=== PATIENT | female | born 1995 | race Hispanic/Latino ===

== ENCOUNTER 2021-03-24 19:12 | Day surgery (SDC) | payer OTHER ==
[2021-03-24] MEDS ORDERED: hydrALAZINE 20 MG/ML VIAL SLOW IVP PRN (19:59)
== END 2021-03-24 20:38 | disposition home health service (06) ==
LOC: CSHLD/OP 19:12
PROVIDERS: ATTEND Obstetrics & Gynecology
DX: O26.892 Other specified pregnancy related conditions, second trimester (principal); R10.30 Lower abdominal pain, unspecified; Z3A.21 21 weeks gestation of pregnancy
CPT/HCPCS: 99283

== ENCOUNTER 2021-06-17 23:15 | Inpatient (IN) | payer MEDICAID, OTHER, SELFPAY ==
[2021-06-17 23:56] VITALS: BMI 31.7
[2021-06-18] MEDS: Lactated Ringer's 1,000 ML IV SCH ×2 (00:46→19:18)
[2021-06-18] MEDS ORDERED: Ondansetron PF 4 MG/2 ML Vial IVP PRN (01:49)
[2021-06-18] MEDS ORDERED: Promethazine HCl 25 MG/ML VIAL IM PRN (01:49)
[2021-06-18] MEDS ORDERED: hydrALAZINE 20 MG/ML VIAL SLOW IVP PRN (01:49)
[2021-06-18] MEDS ORDERED: NIFEdipine 10 MG CAP PO SCH (02:00)
[2021-06-18] MEDS ORDERED: Lactated Ringer's 1,000 ML IV SCH (02:00)
[2021-06-18] MEDS ORDERED: Betamet Acet/Betamet Na Ph 30 MG/5 ML VIAL ONE (02:24)
[2021-06-18 02:26] LABS: Hemoglobin 11.2 g/dL (12.0-15.5); Mean Corpuscular HGB CONC 33.8 g/dL (32.0-36.0); Mean Corpuscular Hemoglobin 30.9 pg (27.0-33.0); Mean Corpuscular Volume 91.4 fl (81.6-98.3); Platelet Count 176 10x3/uL (150-450); RBC Distribution Width 14.3 % (11.5-14.5); Red Blood Cell (RBC) Count 3.62 10x6/uL (3.90-5.03)
[2021-06-18 02:27] LABS: FFN Internal QC Analyzer PASS (PASS); FFN Internal QC Cassette PASS (PASS); Fetal Fibronectin Negative (Negative)
[2021-06-18] MEDS: Betamet Acet/Betamet Na Ph 30 MG/5 ML VIAL IM SCH (02:32)
[2021-06-18 05:38] LABS: Bilirubin Neg (Negative); Blood, Urine Negative (Negative); Clarity Clear (Clear); Glucose, Urine (Dipstick) Normal (Negative); Ketone, Urine 50 mg/dL (Negative); Leukocyte Negative (Negative); Nitrite Negative (Negative); Protein, Urine (Dipstick) Negative (Neg-Trace); Urobilinogen Normal mg/dL (Less than 2); pH, Urine 6.5 (5.0-9.0)
[2021-06-18 05:52] LABS: RBC/HPF 0-3 HPF (0-3); Squamous Epithelial 0-3 HPF (0-3)
[2021-06-18 05:53] LABS: Bacteria/HPF Rare-Few HPF (None Seen)
[2021-06-18] MEDS ORDERED: metroNIDAZOLE 500 MG TAB PO SCH (08:00)
[2021-06-18] MEDS ORDERED: Fluconazole 100 MG TAB PO SCH (08:00)
[2021-06-18] MEDS ORDERED: Morphine 4 MG/ML VIAL IM SCH (08:30)
[2021-06-18] MEDS ORDERED: Morphine 4 MG/ML VIAL SLOW IVP SCH (08:30)
[2021-06-18] MEDS: NIFEdipine 10 MG CAP PO SCH ×3 (08:52→19:14)
[2021-06-18] MEDS: Acetaminophen 500 MG TAB PO PRN (19:49)
[2021-06-18] MEDS ORDERED: Butorphanol Tartrate 1 MG/ML VIAL SLOW IVP PRN (20:55)
[2021-06-18] MEDS ORDERED: hydrOXYzine Pamoate 25 mg Capsule PO PRN (20:55)
[2021-06-18] MEDS ORDERED: Terbutaline Sulfate 1 MG/ML VIAL SC PRN (20:56)
[2021-06-18] MEDS: metroNIDAZOLE 500 MG TAB PO SCH (20:59)
[2021-06-19] MEDS: NIFEdipine 10 MG CAP PO SCH ×4 (00:51→20:01)
[2021-06-19] MEDS: Betamet Acet/Betamet Na Ph 30 MG/5 ML VIAL IM SCH (02:34)
[2021-06-19] MEDS: Acetaminophen 500 MG TAB PO PRN ×2 (02:40→10:04)
[2021-06-19] MEDS: metroNIDAZOLE 500 MG TAB PO SCH ×2 (10:01→21:09)
[2021-06-20] MEDS: NIFEdipine 10 MG CAP PO SCH ×2 (02:10→08:42)
[2021-06-20] MEDS: Acetaminophen 500 MG TAB PO PRN ×2 (02:10→08:39)
[2021-06-20] MEDS: metroNIDAZOLE 500 MG TAB PO SCH (08:39)
== END 2021-06-20 14:35 | disposition home or self-care (01) | DRG 832 ==
LOC: CSHLD/OP 23:15 → CSHLD 06-18 02:15 → OBSVTOIN 06-18 02:16
PROVIDERS: ADMIT Family Medicine; ATTEND Family Medicine
DX: O60.03 Preterm labor without delivery, third trimester (principal); O23.593 Infection of other part of genital tract in pregnancy, third trimester; O98.813 Other maternal infectious and parasitic diseases complicating pregnancy, third trimester; B96.89 Other specified bacterial agents as the cause of diseases classified elsewhere; B37.3 Candidiasis of vulva and vagina; Z3A.33 33 weeks gestation of pregnancy; O24.419 Gestational diabetes mellitus in pregnancy, unspecified control
CPT/HCPCS: 76815; 81001; 82731; 85027; 87081; 87480; 87510; 87660; 99285; J0595; J2270; J2550; J3105; J7120

== ENCOUNTER 2022-09-01 23:26 | Emergency (ER) | payer MEDICAID, SELFPAY ==
[2022-09-02 00:32] LABS: Bilirubin Neg (Negative); Blood, Urine 25 (Negative); Clarity Cloudy (Clear); Glucose, Urine (Dipstick) Normal (Negative); Ketone, Urine 50 mg/dL (Negative); Leukocyte 500 (Negative); Nitrite Negative (Negative); Protein, Urine (Dipstick) 15 mg/dl (Neg-Trace); Specific Gravity, Urine 1.025 (1.005-1.030); Urobilinogen Normal mg/dL (Less than 2)
[2022-09-02 00:37] LABS: #Eosinphils 0.1 10x3/uL (0.0-0.5); #Monocytes 0.6 10x3/uL (0.0-1.1); #Neutrophils 5.7 10x3/uL (1.5-8.4); %Basophils 0.3 % (0.0-2.0); %Eosinophils 0.8 % (0.0-6.0); %Monocytes 6.1 % (0.0-10.0); %Neutrophils 58.6 % (40.0-75.0); Hematocrit 39.6 % (34.9-44.5); Hemoglobin 13.2 g/dL (12.0-15.5); Mean Corpuscular HGB CONC 33.3 g/dL (32.0-36.0); Mean Corpuscular Hemoglobin 28.7 pg (27.0-33.0); Mean Corpuscular Volume 86.1 fl (81.6-98.3); Mean Platelet Volume 11.2 fl (7.4-10.4); Platelet Count 248 10x3/uL (150-450); RBC Distribution Width 13.9 % (11.5-14.5); White Blood Cell (WBC) Count 9.7 10x3/uL (3.5-10.5)
[2022-09-02 00:40] LABS: Bacteria/HPF Rare-Few HPF (None Seen); CAUTI Indications for Culture Dysuria,urgency,freq
[2022-09-02 00:41] LABS: Urine Culture Reflex No No
== END 2022-09-02 01:09 | disposition home or self-care (01) ==
LOC: CSHERS 23:26
DX: N76.0 Acute vaginitis (principal); R10.2 Pelvic and perineal pain
CPT/HCPCS: 76856; 81001; 84702; 85025

== ENCOUNTER 2023-02-05 22:02 | Day surgery (SDC) | payer OTHER ==
[2023-02-05 22:23] VITALS: BMI 34.4
[2023-02-05] MEDS ORDERED: hydrALAZINE 20 MG/ML VIAL SLOW IVP PRN (22:32)
[2023-02-05] MEDS ORDERED: Lactated Ringer's 1,000 ML IV SCH (22:45)
[2023-02-05 23:29] LABS: Bilirubin Neg (Negative); Blood, Urine Negative (Negative); Clarity Clear (Clear); Glucose, Urine (Dipstick) Normal (Negative); Ketone, Urine Negative (Negative); Leukocyte 25 (Negative); Nitrite Negative (Negative); Protein, Urine (Dipstick) 15 mg/dl (Neg-Trace); Specific Gravity, Urine 1.005 (1.005-1.030); Urobilinogen Normal mg/dL (Less than 2); pH, Urine 6.5 (5.0-9.0)
[2023-02-05 23:41] LABS: RBC/HPF 0-3 HPF (0-3)
[2023-02-05 23:43] LABS: Squamous Epithelial 0-3 HPF (0-3); WBC/HPF 0-3 HPF (0-3)
[2023-02-05 23:46] LABS: Bacteria/HPF 1+ HPF (None Seen)
== END 2023-02-06 00:31 | disposition home or self-care (01) ==
LOC: CSHLD/OP 22:02
PROVIDERS: ATTEND Family Medicine
DX: O36.8130 Decreased fetal movements, third trimester, not applicable or unspecified (principal); O99.891 Other specified diseases and conditions complicating pregnancy; R10.9 Unspecified abdominal pain; Z3A.31 31 weeks gestation of pregnancy
CPT/HCPCS: 76819; 81001

== ENCOUNTER 2023-02-21 15:04 | Inpatient (IN) | payer MEDICAID, OTHER ==
[2023-02-21] MEDS ORDERED: Tranexamic Acid 1,000 MG/10 ML VIAL IVP PRN (15:07)
[2023-02-21] MEDS ORDERED: Promethazine HCl 25 MG/ML VIAL IM PRN (15:07)
[2023-02-21] MEDS ORDERED: Methylergonovine 0.2 MG/ML VIAL IM PRN (15:07)
[2023-02-21] MEDS ORDERED: Diphenoxylate HCl/Atropine Tablet PO PRN (15:07)
[2023-02-21] MEDS ORDERED: Acetaminophen 500 MG TAB PO PRN (15:07)
[2023-02-21] MEDS ORDERED: Misoprostol 200 MCG TAB PR PRN (15:07)
[2023-02-21] MEDS ORDERED: hydrALAZINE 20 MG/ML VIAL SLOW IVP PRN (15:07)
[2023-02-21] MEDS ORDERED: Ondansetron PF 4 MG/2 ML Vial IVP PRN (15:07)
[2023-02-21] MEDS ORDERED: Docusate 100 MG CAP PO PRN (15:07)
[2023-02-21] MEDS ORDERED: Carboprost 250 MCG/ML AMP IM PRN (15:07)
[2023-02-21] MEDS ORDERED: AZITHROMYCIN IVPB SCH (15:15)
[2023-02-21] MEDS ORDERED: ADMIXTURE FEE IVPB SCH (15:15)
[2023-02-21] MEDS ORDERED: Lactated Ringer's 1,000 ML IV SCH (15:15)
[2023-02-21] MEDS ORDERED: SODIUM CHLORIDE IVPB SCH (15:15)
[2023-02-21] MEDS ORDERED: NIFEdipine 10 MG CAP PO SCH (15:15)
[2023-02-21] MEDS ORDERED: Oxytocin 30 units/NS 500 ML 500 ML IV SCH (15:15)
[2023-02-21] MEDS: Betamet Acet/Betamet Na Ph 30 MG/5 ML VIAL IM SCH (17:15)
[2023-02-21] MEDS: Ampicillin 2 GM in Sodium Chloride 0.9% 100 ML IVPB SCH ×2 (17:15→23:09)
[2023-02-21 17:18] LABS: Hematocrit 38.2 % (34.9-44.5); Hemoglobin 12.5 g/dL (12.0-15.5); Mean Corpuscular HGB CONC 32.7 g/dL (32.0-36.0); Mean Corpuscular Hemoglobin 29.8 pg (27.0-33.0); Platelet Count 160 10x3/uL (150-450); RBC Distribution Width 14.4 % (11.5-14.5); White Blood Cell (WBC) Count 8.3 10x3/uL (3.5-10.5)
[2023-02-21 18:17] LABS: HBSAg Index 0.19 S/CO (0-0.99); Hep B Surf Ag - L&D Non-Reactive S/CO (NonReactive)
[2023-02-21 18:18] LABS: Syphilis Antibody Nonreactive (Nonreactive); Syphilis Antibody Index 0.06 S/CO (<1.00 Non-Reactive)
[2023-02-21 19:07] VITALS: BMI 34.4
[2023-02-21] MEDS ORDERED: Terbutaline Sulfate 1 MG/ML VIAL ONE (21:16)
[2023-02-21] MEDS: NIFEdipine 10 MG CAP PO PRN (21:20)
[2023-02-21] MEDS: fentaNYL 50 mcg/mL 1 mL Vial SLOW IVP PRN (21:21)
[2023-02-21] MEDS ORDERED: Terbutaline Sulfate 1 MG/ML VIAL SC SCH (21:30)
[2023-02-22] MEDS: NIFEdipine 10 MG CAP PO PRN ×5 (01:28→20:01)
[2023-02-22] MEDS: Ampicillin 2 GM in Sodium Chloride 0.9% 100 ML IVPB SCH ×3 (05:26→18:14)
[2023-02-22 14:41] LABS: Bilirubin Neg (Negative); Blood, Urine Negative (Negative); Clarity Slightly Cloudy (Clear); Glucose, Urine (Dipstick) Normal (Negative); Ketone, Urine 150 mg/dL (Negative); Leukocyte 25 (Negative); Nitrite Negative (Negative); Protein, Urine (Dipstick) 15 mg/dl (Neg-Trace)
[2023-02-22 14:51] LABS: CAUTI Indications for Culture Pregnancy; RBC/HPF 0-3 HPF (0-3)
[2023-02-22 14:52] LABS: Bacteria/HPF 1+ HPF (None Seen); Urine Culture Reflex Yes Yes
[2023-02-22] MEDS ORDERED: Lactated Ringer's 1,000 ML IV SCH (18:00)
[2023-02-22] MEDS ORDERED: Terbutaline Sulfate 1 MG/ML VIAL SC SCH (18:00)
[2023-02-22] MEDS ORDERED: Terbutaline Sulfate 1 MG/ML VIAL ONE (18:01)
[2023-02-22] MEDS ORDERED: Betamet Acet/Betamet Na Ph 30 MG/5 ML VIAL ONE (18:01)
[2023-02-22] MEDS: Betamet Acet/Betamet Na Ph 30 MG/5 ML VIAL IM SCH (18:13)
[2023-02-22] MEDS: Gentamicin Sulfate 410 MG in Sodium Chloride 0.9% 100 ML IVPB SCH (19:14)
[2023-02-22] MEDS: fentaNYL 50 mcg/mL 1 mL Vial SLOW IVP PRN (20:11)
[2023-02-23] MEDS: Ampicillin 2 GM in Sodium Chloride 0.9% 100 ML IVPB SCH ×4 (00:37→15:33)
[2023-02-23] MEDS: fentaNYL 50 mcg/mL 1 mL Vial SLOW IVP PRN ×2 (07:37→11:50)
[2023-02-23] MEDS: NIFEdipine 10 MG CAP PO PRN ×2 (07:38→11:36)
[2023-02-23] MEDS: Lactated Ringer's 1,000 ML IV SCH ×4 (08:46→19:50)
[2023-02-23] MEDS: Gentamicin Sulfate 410 MG in Sodium Chloride 0.9% 100 ML IVPB SCH (19:50)
[2023-02-24] MEDS: fentaNYL 50 mcg/mL 1 mL Vial SLOW IVP PRN (07:21)
[2023-02-24] MEDS ORDERED: fentaNYL 50 mcg/mL 1 mL Vial SLOW IVP PRN (10:30)
[2023-02-24] MEDS: AMOXicillin 250 MG CAP PO SCH ×2 (15:34→21:21)
[2023-02-24] MEDS: Lactated Ringer's 1,000 ML IV SCH ×2 (18:53→21:22)
[2023-02-24] MEDS ORDERED: hydrOXYzine Pamoate 25 mg Capsule PO SCH (21:45)
[2023-02-25] MEDS: AMOXicillin 250 MG CAP PO SCH ×3 (11:17→21:14)
[2023-02-25] MEDS: Lactated Ringer's 1,000 ML IV SCH ×3 (11:20→21:14)
[2023-02-25] MEDS ORDERED: hydrOXYzine Pamoate 25 mg Capsule PO SCH (21:00)
[2023-02-26] MEDS: AMOXicillin 250 MG CAP PO SCH (10:04)
== END 2023-02-26 11:20 | disposition home or self-care (01) | DRG 833 ==
LOC: CSHLD 15:04
PROVIDERS: ADMIT Family Medicine; ATTEND Family Medicine
DX: O60.03 Preterm labor without delivery, third trimester (principal); Z3A.33 33 weeks gestation of pregnancy
CPT/HCPCS: 36416; 81001; 85027; 86780; 86850; 86900; 86901; 87086; 87340; J0290; J0456; J0702; J1580; J3010; J3105; J3490; J7050; J7120; Q0177

== ENCOUNTER 2023-03-03 18:26 | Inpatient (IN) | payer MEDICAID ==
[2023-03-03] MEDS ORDERED: Docusate 100 MG CAP PO PRN (19:33)
[2023-03-03] MEDS ORDERED: Methylergonovine 0.2 MG/ML VIAL IM PRN (19:33)
[2023-03-03] MEDS ORDERED: Misoprostol 200 MCG TAB PR PRN (19:33)
[2023-03-03] MEDS ORDERED: hydrALAZINE 20 MG/ML VIAL SLOW IVP PRN (19:33)
[2023-03-03] MEDS ORDERED: Carboprost 250 MCG/ML AMP IM PRN (19:33)
[2023-03-03] MEDS ORDERED: Diphenoxylate HCl/Atropine Tablet PO PRN (19:33)
[2023-03-03] MEDS ORDERED: Acetaminophen 500 MG TAB PO PRN (19:33)
[2023-03-03] MEDS ORDERED: Promethazine HCl 25 MG/ML VIAL IM PRN (19:33)
[2023-03-03] MEDS ORDERED: Ondansetron PF 4 MG/2 ML Vial IVP PRN (19:33)
[2023-03-03] MEDS ORDERED: HYDROcodone/Acetaminophen 5/325 mg Tablet PO PRN (19:35)
[2023-03-03] MEDS ORDERED: Lidocaine 1% (PF) 30 ML VIAL SC PRN (19:35)
[2023-03-03] MEDS ORDERED: Ibuprofen 800 MG TAB PO PRN (19:35)
[2023-03-03] MEDS ORDERED: Bupivacaine 0.25% HCL 30 ML VIAL ONE (19:56)
[2023-03-03] MEDS ORDERED: Penicillin G Potassium 5 MILL.UNITS in Sodium Chloride 0.9% 100 ML IVPB SCH (20:00)
[2023-03-03] MEDS ORDERED: Oxytocin 30 units/NS 500 ML 500 ML IV SCH (20:15)
[2023-03-03] MEDS: Lactated Ringer's 1,000 ML IV SCH (20:35)
[2023-03-03] MEDS: fentaNYL 50 mcg/mL 1 mL Vial SLOW IVP PRN (21:00)
[2023-03-03 21:09] VITALS: BMI 30.6
[2023-03-03 21:24] LABS: Syphilis Antibody Nonreactive (Nonreactive); Syphilis Antibody Index 0.06 S/CO (<1.00 Non-Reactive)
[2023-03-03 21:25] LABS: Hep B Surf Ag - L&D Non-Reactive S/CO (NonReactive)
[2023-03-03 21:37] LABS: Hemoglobin 12.6 g/dL (12.0-15.5); Mean Corpuscular HGB CONC 33.2 g/dL (32.0-36.0); Mean Corpuscular Hemoglobin 29.9 pg (27.0-33.0); Platelet Count 186 10x3/uL (150-450); RBC Distribution Width 14.4 % (11.5-14.5); Red Blood Cell (RBC) Count 4.22 10x6/uL (3.90-5.03); White Blood Cell (WBC) Count 7.4 10x3/uL (3.5-10.5)
[2023-03-04] MEDS: Penicillin G 2.5 MILL.units 2.5 MILL.UNITS in Premix 1 BAG IVPB SCH ×2 (00:59→05:19)
[2023-03-04] MEDS: fentaNYL 50 mcg/mL 1 mL Vial SLOW IVP PRN (02:27)
[2023-03-04] MEDS ORDERED: fentaNYL/Ropivacaine Epidural 100 ML ONE (03:07)
[2023-03-04] MEDS ORDERED: Acetaminophen 325 MG TAB PO PRN (03:57)
[2023-03-04] MEDS ORDERED: Ondansetron PF 4 MG/2 ML Vial IVP PRN (03:57)
[2023-03-04] MEDS ORDERED: Moisturizing Cream (Eucerin) 113 GM JAR TOP PRN (03:57)
[2023-03-04] MEDS ORDERED: ePHEDrine Sulfate 50 MG/10 ML VIAL SLOW IVP PRN (03:57)
[2023-03-04] MEDS ORDERED: diphenhydrAMINE 50 MG/ML VIAL IVP PRN (03:57)
[2023-03-04] MEDS ORDERED: Promethazine HCl 25 MG/ML VIAL IM PRN (03:57)
[2023-03-04] MEDS ORDERED: Lactated Ringer's 500 ML IV PRN (03:57)
[2023-03-04] MEDS ORDERED: Naloxone HCl 0.4 mg/ml Vial IVP PRN ×2 (03:57)
[2023-03-04] MEDS ORDERED: fentaNYL 2 mcg/Ropivacaine 0.2% Epidural 100 ML CADD EPIDURAL SCH (04:00)
[2023-03-04] MEDS ORDERED: Communication Order-Pharmacy FS SCH (04:00)
[2023-03-04] MEDS ORDERED: Carboprost 250 MCG/ML AMP ONE (07:11)
[2023-03-04] MEDS ORDERED: Tranexamic Acid 1,000 MG/10 ML VIAL ONE (07:11)
[2023-03-04] MEDS ORDERED: Misoprostol 200 MCG TAB ONE (07:11)
[2023-03-04] MEDS ORDERED: Boostrix 0.5 ML (Tdap) VIAL (>/=7 yrs of age) IM ONE (07:17)
[2023-03-04] MEDS ORDERED: hydrALAZINE 20 MG/ML VIAL SLOW IVP PRN (07:17)
[2023-03-04] MEDS ORDERED: Bisacodyl 10 MG SUPP PR PRN (07:17)
[2023-03-04] MEDS ORDERED: Milk Of Magnesia 30 ML UDCUP PO PRN (07:17)
[2023-03-04] MEDS ORDERED: Preparation H Ointment 28 GM TUBE PR PRN (07:17)
[2023-03-04] MEDS ORDERED: Docusate 100 MG CAP PO SCH (09:00)
[2023-03-04] MEDS: HYDROcodone/Acetaminophen 5/325 mg Tablet PO PRN ×2 (17:23→22:08)
[2023-03-04] MEDS: Ferrous Sulfate 325 MG TAB PO SCH (18:03)
[2023-03-04] MEDS: Ibuprofen 800 MG TAB PO PRN (22:05)
[2023-03-05 06:24] LABS: Hematocrit 35.3 % (34.9-44.5); Hemoglobin 11.4 g/dL (12.0-15.5)
[2023-03-05] MEDS: Ferrous Sulfate 325 MG TAB PO SCH ×2 (07:09→16:16)
[2023-03-05] MEDS: Ibuprofen 800 MG TAB PO PRN ×2 (09:24→17:07)
[2023-03-05] MEDS ORDERED: Acetaminophen 500 MG TAB PO PRN ×2 (12:55→12:56)
[2023-03-05] MEDS ORDERED: Polyethylene Glycol 3350 17 GM Packet PO SCH (14:00)
[2023-03-06] MEDS: Ibuprofen 800 MG TAB PO PRN (04:08)
[2023-03-06] MEDS: Ferrous Sulfate 325 MG TAB PO SCH (07:34)
[2023-03-06] MEDS: Lactated Ringer's 1,000 ML IV SCH (07:34)
[2023-03-06 08:18] VITALS: BP 119/71; TEMP 98.6
[2023-03-06] MEDS ORDERED: Polyethylene Glycol 3350 17 GM Packet PO SCH (09:00)
== END 2023-03-06 17:00 | disposition home or self-care (01) | DRG 807 ==
LOC: CSHLD/OP 18:26 → CSHLD 19:50 → CSHPP 03-04 12:30
PROVIDERS: ADMIT Family Medicine; ATTEND Family Medicine
PROC: 10E0XZZ Delivery of Products of Conception, External Approach (ICD-10-PCS; principal; 2023-03-04)
PROC: 3E033XZ Introduction of Vasopressor into Peripheral Vein, Percutaneous Approach (ICD-10-PCS; 2023-03-04)
DX: O60.14X0 Preterm labor third trimester with preterm delivery third trimester, not applicable or unspecified (principal); Z37.0 Single live birth; O24.420 Gestational diabetes mellitus in childbirth, diet controlled; Z3A.34 34 weeks gestation of pregnancy; Z88.8 Allergy status to other drugs, medicaments and biological substances; O62.2 Other uterine inertia
CPT/HCPCS: 36415; 36416; 51702; 76815; 85014; 85018; 85027; 86780; 86850; 86900; 86901; 87340; 99285; J2210; J2540; J3010; J3490; J7120; S0020